=== PATIENT | male | born 2000 | race Caucasian/White ===

== ENCOUNTER 2024-11-30 19:50 | Emergency (ER) | payer BC, SELFPAY ==
--- NOTE | ~2024-11-30 | XR_ITS ---
Examination: XR knee LT min 4V Clinical History: pain and swelling Comparison: None Technique: 4 views left knee Findings/impression: 1. Suprapatellar effusion. 2. No fracture or dislocation. Reviewed, dictated and finalized at location R.
[2024-11-30 19:50] VITALS: BP 165/118; PULSE 119; RESP 20; TEMP 36.3; O2SAT 97
--- NOTE | 2024-11-30 19:55 | ED.UPPEXIN ---
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 He is here with swollen left knee and pain. MD complaint: injury to: left (Knee) Onset (ago): day(s) (Three) Other injuries: none Place: home Severity: moderate Severity scale (1-10): 5 Relieving factors: immobilization Exacerbating factors: movement of extremity Context: injury and other (Dislocation of the left knee due to his hypermobility with walking) Associated symptoms: denies other symptoms Treatments prior to arrival: cold therapy Related Data Allergies Allergy/AdvReac Type Severity Reaction Status Date / Time No Known Allergies Allergy Verified 11/30/24 19:53 Review of Systems Review of Systems: All systems reviewed & are unremarkable except as noted in HPI and below Constitutional: Constitutional: Reports no additional constitutional complaints Eyes: Eyes: Reports no additional eye complaints ENT: Reports system reviewed and no additional complaints, except as documented Cardiovascular: Cardiovascular: Reports no additional cardiovascular complaints Respiratory: Respiratory: Reports no additional respiratory complaints Gastrointestinal: Gastrointestinal: Reports no additional gastrointestinal complaints Genitourinary: Genitourinary: Reports no additional male genitourinary complaints Musculoskeletal: Musculoskeletal: Reports no additional musculoskeletal complaints Integumentary/Breasts: Skin/Breast: Reports system reviewed and no additional complaints, except as docu Neurologic: Reports system reviewed and no additional complaints, except as documented Psychiatric: Psychiatric: Reports no additional psychiatric complaints Endocrine: Endocrine: Reports no additional endocrine complaints Hematologic/Lymphatic: Hematologic/Lymphatic: Reports no additional hematologic/lymphatic complaints Allergic/Immunologic: Allergic/Immunologic: Reports no additional allergic/immunologic complaints Exam Const: General: healthy appearing Nutritional Appearance: well nourished Orientation/consciousness: patient oriented x3 HENMT: Head: normal to inspection Ears: external ears normal Face/Nose/Sinus: Normal external nose present Eyes: Conjunctivae: conjunctivae normal Pupils: Equal, round and reactive pupils present EOM: EOMs intact bilaterally Neck: Neck: normal visual inspection Chest: Chest palpation & inspection: normal inspection of the chest Resp: Effort & Inspection: normal respiratory effort and not labored Auscultation: clear to auscultation bilaterally and no crackles Cardio: Rate: regular rate Rhythm: regular rhythm Heart sounds: no murmurs GI: Inspection: non-distended GI Palp: Yes Soft to palpation and No Tenderness to palpation present (GI) Auscultation: normal bowel sounds : General: Yes bladder normal to palpation Back/Spine/Pelvis: Back: no CVA tenderness Skin: General skin exam: normal color Rashes: no rashes Wounds: no wounds Neuro: General: patient oriented x3, moves all extremities and no meningeal signs Extrem: General: normal to inspection, no clubbing, cyanosis or edema and no pedal edema Other: Left knee has suprapatellar effusion/fluid buildup and tenderness to palpation with the knee cap in place; no obvious derangement of the knee at this time Psych: Mental Status: mental status grossly normal Affect: normal affect Attitude: cooperative MDM - Extremity Injury (Upper) MDM Narrative Medical decision making narrative: Patient is a 24-year-old male with a left knee injury and hypermobility disease. X-ray. Prednisone. [place]. Imaging Data Attestation: I personally reviewed and interpreted this imaging study as follows: Radiologist's impression: X-ray left knee shows suprapatellar effusion and otherwise negative for acute process Discharge Plan Discharge Clinical Impression: Suprapatellar effusion of knee Dislocated knee Qualifiers: Encounter type: initial encounter Laterality: left Qualified Code(s): S83.105A - Unspecified dislocation of left knee, initial encounter Patient Disposition: Home Condition: Stable Instructions: Swollen Knee Joint (ED) Additional Instructions: Please follow-up with the primary doctor in the next week. MRI is suggested if continued pain after 1 week. Rest, ice, elevation and compression with Robert bandage. Tylenol and ibuprofen. Patient Language: Upper Sorbian Prescriptions: New hydrocodone-acetaminophen 5-325 mg tablet 1 tablet PO Q8H PRN (Reason: pain) Qty: 15 0RF prednisone 20 mg tablet 20 mg PO DAILY 3 Days Qty: 3 0RF Follow-up/Referrals: Arya Murray MD [Primary Care Provider, Internal Medicine] Time of Disposition: 20:32
[2024-11-30 20:34] VITALS: BP 147/88; PULSE 72; RESP 16; TEMP 36.7; O2SAT 98
[2024-11-30 20:38] VITALS: BP 147/88; PULSE 83; O2SAT 97
[2024-11-30] MEDS: KETOROLAC (*BKC) 60 MG/2 ML VIAL IM (20:42)
== END 2024-11-30 21:02 | disposition home or self-care (01) ==
PROVIDERS: Emergency Provider Emergency Medicine; PCP Family Medicine
DX: S83.105A Unspecified dislocation of left knee, initial encounter (principal); M25.462 Effusion, left knee; Q79.60 Ehlers-Danlos syndrome, unspecified; X58.XXXA Exposure to other specified factors, initial encounter
CPT/HCPCS: 73564; 96372; 99283; J1885; J7512